=== PATIENT | male | born 1980 | race Caucasian/White ===

== ENCOUNTER → 2023-08-03 | Outpatient (CLI) | payer BC ==
--- NOTE | 2023-08-03 15:23 | US ---
EXAMINATION TYPE: US abdomen complete DATE OF EXAM: 08/03/2023 COMPARISON: NONE CLINICAL INDICATION: Male, 42 years old with history of R10.9 UNSPECIFIED ABDOMINAL PAIN; Generalized abdomen pain x 2 years. TECHNIQUE: Multiple sonographic images of the abdomen are obtained. FINDINGS: EXAM MEASUREMENTS: Liver Length: 16.7 cm Gallbladder Wall: 0.2 cm CBD: 5.5 mm Spleen: 11.2 cm Right Kidney: 10.7 x 6.0 x 5.4 cm Left Kidney: 11.8 x 4.5 x 5.2 cm Pancreas: Head and tail obscured by overlying bowel gas. Visualized body shows no gross abnormality. Liver: Echogenic and attenuating. No focal lesion seen. Gallbladder: No stones or wall thickening seen Evidence for sonographic Okeefe's sign: neg CBD: Limited visualization, visualized portion is upper limits of normal in caliber Spleen: wnl Right Kidney: No hydronephrosis or masses seen Left Kidney: No hydronephrosis or masses seen Upper IVC: wnl Abd Aorta: No AAA visualized at portions seen IMPRESSION: 1. Moderate to severe hepatic steatosis. Appropriate clinical management is advised. 2. No gallstones or biliary ductal dilatation.
== END | disposition home or self-care (01) ==
LOC: RADUSWWP 13:09
PROVIDERS: ATTEND Family Medicine
DX: K76.0 Fatty (change of) liver, not elsewhere classified (principal)
CPT/HCPCS: 76700

== ENCOUNTER → 2023-08-04 | Outpatient (CLI) | payer BC ==
--- NOTE | 2023-08-04 12:33 | FL ---
EXAMINATION TYPE: FL UGI DATE OF EXAM: 08/04/2023 COMPARISON: NONE HISTORY: 42-year-old male R10.9, unspecified abdominal pain, stomach discomfort with gas and bloating TECHNIQUE: A double contrast UGI study is performed. A total of 2 minutes 8 seconds of fluoroscopic time was utilized during procedure and 49 images obtained. Total dose area product (DAP) in uGy*m?, mGy*cm? (or similar): 684.43. FINDINGS: The esophagus shows normal motility and emptying into the stomach. No stricture or fixed narrowing. There is a small sliding hiatal hernia noted along with moderate gastroesophageal reflux during the c ourse of the exam. The stomach shows normal distensibility, peristalsis, and mucosal folds. No evidence of any mass or ulcer disease. The duodenal bulb, sweep, and proximal small bowel loops are unremarkable. IMPRESSION: 1. Small sliding hiatal hernia with moderate gastroesophageal reflux encountered. 2. Otherwise, unremarkable upper GI examination.
== END | disposition home or self-care (01) ==
LOC: RADUSWWP 08:55
PROVIDERS: ATTEND Family Medicine
DX: K44.9 Diaphragmatic hernia without obstruction or gangrene (principal); K21.9 Gastro-esophageal reflux disease without esophagitis
CPT/HCPCS: 74240

== ENCOUNTER → 2023-08-30 | Outpatient (CLI) | payer BC ==
--- NOTE | 2023-08-31 12:08 | NM ---
EXAMINATION TYPE: NM hepatobiliary w EF DATE OF EXAM: 08/30/2023 COMPARISON: NONE CLINICAL INDICATION: Male, 42 years old with history of R10.13 EPIGASTRIC PAIN; TECHNIQUE: After the intravenous administration of 5.2 mCi Tc 99m Mebrofenin hepatobiliary scintigrap hy is performed. Immediate images post injection. FINDINGS: There is satisfactory initial accumulation of tracer by the liver. The gallbladder is visualized wit hin 56 minutes. The small bowel activity is noted within 6 minutes. At one hour 8 ounces of oral en sure plus is given to mimic CCK and gallbladder ejection fraction is calculated at 63 %, in the nahun l range. Therefore there is no scintigraphic evidence of cystic or common bile duct obstruction to s uggest acute cholecystitis or gallbladder dyskinesia. IMPRESSION: No scintigraphic evidence for acute/chronic cholecystitis or biliary dyskinesia.
== END | disposition home or self-care (01) ==
LOC: RADNMMAIN 13:00
PROVIDERS: ATTEND Family Medicine
DX: R10.13 Epigastric pain (principal)
CPT/HCPCS: 78226; A9537

== ENCOUNTER 2024-06-20 13:29 | Day surgery (SDC) | payer BC ==
[~2024-06-20 13:29] MED LIST: LIDOCAINE 1% (10MG/ML) FOR IV START INTRADERMA PRN
[2024-06-20 15:08] VITALS: TEMP 98.3
[2024-06-20] MEDS: LACTATED RINGERS 1,000 ML IV SCH (15:16)
[2024-06-20] MEDS: hydrALAZINE HCL 20 MG/ML 1 ML VIAL IVP STA (15:17)
[2024-06-20] MEDS: LACTATED RINGERS 1,000 ML IV ONE (15:19)
[2024-06-20] MEDS ORDERED: PROPOFOL 10 MG/ML 20 ML VIAL IV ONE (15:43)
[2024-06-20] MEDS ORDERED: LIDOCAINE 1% INJ 10MG/ML (20 ML MDV) ONE (15:43)
--- NOTE | 2024-06-20 15:59 | P.PCN ---
Date of Procedure: 06/20/24 Procedure(s) Performed: BRIEF HISTORY: Patient is a 43-year-old pleasant white male scheduled for an elective colonoscopy as a part of evaluation of change in bowel habits for the last 2 years duration. Has alternating diarrhea with normal bowel movements and occasional rectal bleeding PROCEDURE PERFORMED: Colonoscopy with snare polypectomy. PREOPERATIVE DIAGNOSIS: Change in bowel habits. IV sedation per Anesthesia. PROCEDURE: After informed consent was obtained, the patient, was brought into [facility] endoscopy unit. IV sedation was administered by Anesthesia under continuous monitoring. Digital rectal examination was normal. Initially the Olympus CF-160 flexible video colonoscope was then inserted in the rectum, gradually advanced into the cecum without any difficulty. Careful examination was performed as the scope was gradually being withdrawn. Ileocecal valve and the appendiceal orifice were visualized and appeared normal. Prep was good.. Mucosa of the cecum, normal. In the ascending colon there is a 5 mm and 1 cm polyp removed by snare polypectomy. Rest of the ascending colon, transverse colon, descending colon, normal. In the sigmoid colon there was another 5 mm sessile polyp removed by snare polypectomy. Mucosa of the sigmoid colon, and rectum appeared normal. Retroflexion was performed in the rectum and no lesions were seen. The patient tolerated the procedure well. IMPRESSION: 5 mm and 1 cm ascending colon polyp status post snare polypectomy 5 mm sigmoid colon polyp status post polypectomy Grade 2 internal hemorrhoids RECOMMENDATIONS: Findings of this examination were discussed with the patient as well as his family. He was advised to follow-up with the biopsy results. If the biopsy reveals adenoma he can have repeat colonoscopy in 3 years..
[2024-06-20 16:04] VITALS: RESP 16
[2024-06-20 16:26] VITALS: PULSE 83
[2024-06-20 16:42] VITALS: BP 159/98
== END 2024-06-20 16:56 | disposition home or self-care (01) ==
LOC: ORWHC2ENDO 13:29
PROVIDERS: ATTEND Internal Medicine Gastroenterology
DX: D12.2 Benign neoplasm of ascending colon (principal); D12.3 Benign neoplasm of transverse colon; D12.5 Benign neoplasm of sigmoid colon; K64.1 Second degree hemorrhoids; K21.9 Gastro-esophageal reflux disease without esophagitis; Z87.891 Personal history of nicotine dependence; Z79.899 Other long term (current) drug therapy; Z98.890 Other specified postprocedural states
CPT/HCPCS: 88305; 45385; J0360; J2003; J2704